=== PATIENT | female | born 1950 | race Caucasian/White ===

== ENCOUNTER 2017-11-16 08:13 | Emergency (ER) | payer OTHER ==
[~2017-11-16] VITALS: Ht 167.6 cm; Wt 113.4 kg
[~2017-11-16 08:13] MED LIST: ESCITALOPRAM20 MG PO; ZOVIRAX800 MG PO
[2017-11-16 08:16] VITALS: BP 141/92
--- NOTE | 2017-11-16 08:29 | ED GI/GU/ABDOMINAL COMPLAINT ---
History of Present Illness General Chief Complaint: Abdominal Pain/Flank Pain Stated Complaint: "SEVERE BOWEL BLOCKAGE" Source: patient, family, old records Exam Limitations: no limitations Vital Signs & Intake/Output Vital Signs & Intake/Output Vital Signs Date Time Temp Pulse Resp B/P B/P Pulse O2 O2 Flow FiO2 Mean Ox Delivery Rate 11/16 0816 97.3 108 18 141/92 98 Room Air Room Air Allergies Coded Allergies: NO KNOWN ALLERGIES (NONE 11/16/17) Reconcile Medications Acyclovir (Zovirax) 800 MG TAB 1 TAB PO 5 TIMES A DAY HERPES ZOSTER Escitalopram Oxalate 20 MG TAB 1 TAB PO DAILY UNKNOWN (Reported) Triage Note: PT TO ED WITH C/O SEVERE CONSTIPATION, TOOK DUCOLAX, "NOW IT'S WORSE", LAST NORMAL 2 DAYS AGO. Triage Nurses Notes Reviewed? yes ? N Is pt currently ? No HPI: Patient presents with abdominal pain and nausea after experiencing constipation. Her last bowel movement was 2 days ago. Patient states in the past she's had occasional episodes of constipation but never more than a day. Patient took Dulcolax last night and this morning while she was attempting to move her bowels she became nauseous. She has a crampy pain in her left lower quadrant. The cramping is constant. There is no radiation. There are no aggravating or mitigating factors. She rates crampy pain at 4 out of 10. Past History Travel History Traveled to [place] past 21 day No Medical History Any Pertinent Medical History? 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 No Review of Systems Review of Systems Constitutional: Reports: no symptoms. Respiratory: Reports: no symptoms. Cardiovascular: Reports: no symptoms. GI: Reports: see HPI, abdominal pain, constipation, nausea. Musculoskeletal: Reports: no symptoms. Neurological/Psychological: Reports: no symptoms. Immunologic/Allergic: Reports: no symptoms. Physical Exam Physical Exam General Appearance: well developed/nourished, alert, awake, anxious, mild distress Head: atraumatic Eyes: Bilateral: PERRL, EOMI. Ears, Nose, Throat, Mouth: hearing grossly normal, moist mucous membrane Neck: normal inspection, supple, full range of motion Respiratory: normal breath sounds, chest non-tender, no respiratory distress, lungs clear Cardiovascular: regular rate/rhythm, normal peripheral pulses Gastrointestinal: normal bowel sounds, soft, non-tender, no organomegaly Rectal: STOOL IN THE VAULT Back: normal inspection, normal range of motion Extremities: normal range of motion Neurologic/Psych: no motor/sensory deficits, awake, alert, oriented x 3, normal gait, normal mood/affect Skin: intact, normal color, warm/dry Core Measures ACS in differential dx? No Sepsis Present: No Sepsis Focused Exam Completed? No Progress Differential Diagnosis: bowel obstruction, diverticulitis Plan of Care: Current Medications Sig/Blaine Start time Last Medication Dose Stop Time Status Admin Ondansetron HCl 4 MG ONCE ONE 11/16 829 UNVr (Zofran) 11/16 830 Sodium Phosphate 1 UNIT ONCE ONE 11/16 829 UNVr 11/16 830 Initial ED EKG: none Comments: Good results after the Fleet enema. On reexamination there is no abdominal pain. There is no tenderness, guarding or rebound. There is no nausea. Patient feels comfortable going home. Departure Departure Disposition: HOME OR SELF CARE Condition: Stable Clinical Impression Primary Impression: Constipation Referrals: Aníbal SUAZO,Rei Sims (PCP/Family) Additional Instructions: Take MiraLAX daily for the next 5 days. Return if symptoms return or for any other concerns. Departure Forms: Customer Survey General Discharge Information
== END 2017-11-16 08:57 ==
LOC: ERH 08:13
DX: K59.00 Constipation, unspecified (principal); R10.32 Left lower quadrant pain; R11.0 Nausea
CPT/HCPCS: J3101